=== PATIENT | male | born 1970 | race Caucasian/White ===

== ENCOUNTER 2021-07-26 14:02 | Inpatient (IN) | payer OTHER ==
[~2021-07-26] VITALS: Ht 172.7 cm; Wt 108.9 kg
[2021-07-26 16:36] LABS: HEMATOCRIT 42.8 % (42.0-52.0); HEMOGLOBIN 14.2 gm/dL (14.0-18.0); MCH 29.4 pg (26.0-34.0); MCHC 33.2 g/dL (28.0-37.0); MCV 88.6 fL (80.0-100.0); RBC 4.83 mil/uL (4.50-6.00); RDW 14.4 % (10.5-14.5); WBC 9.7 thou/uL (4.0-11.0)
[2021-07-26 16:46] LABS: CALCIUM 8.7 mg/dL (8.5-10.1); CREATININE 1.3 mg/dL (0.7-1.3)
[2021-07-26 16:50] LABS: INR 0.94; PROTIME 10.3 Seconds (10.5-12.1)
[2021-07-26 16:52] LABS: ALBUMIN 3.4 g/dL (3.4-5.0); TOTAL BILIRUBIN 0.5 mg/dL (0.2-1.0); TOTAL PROTEIN 6.9 g/dL (6.4-8.2)
[2021-07-26 16:55] LABS: CHOLESTEROL 239 mg/dL (<200); HDL CHOLESTEROL 40 mg/dL (>40); LDL CHOLESTEROL 183 mg/dL (<100); TRIGLYCERIDE 84 mg/dL (<150); VLDL 17 mg/dL (<40)
[2021-07-26 17:34] LABS: FOLIC ACID 15.6 ng/mL (8.6-58.9)
[2021-07-26 17:45] VITALS: BP 169/108
--- NOTE | 2021-07-26 18:24 | NUR ---
PT TO THE UNIT FROM [facility] VIA AMBULANCE. ORIENTED TO ROOM AND BEDSPACE. ASSESSMENT CHARTED - MEDS PER NOV - SEEN BY DR JOHNSON AND SHERLEY THIS AFTERNOON. SHADIA DIET AND FLUIDS. NO CO'S OF PAIN OR NAUSEA. HAS BEEN RESTING IN BED WITH NO CO'S OF SOB. PT RESTING COMFORTABLY AT THE PRESENT TIME.
[2021-07-26 19:39] VITALS: BP 158/109
[2021-07-26 23:45] VITALS: BP 147/95
[2021-07-27 04:25] VITALS: BP 130/95
[2021-07-27 05:27] LABS: CALCIUM 8.6 mg/dL (8.5-10.1); CREATININE 1.2 mg/dL (0.7-1.3); POTASSIUM 4.2 mmol/L (3.5-5.1)
--- NOTE | 2021-07-27 07:07 | EKG ---
[place] [address] [address] [place] [address] ELECTROCARDIOGRAM REPORT Name: ZAK PÉREZ Room #: 214-P ADM IN M.R.#: [id number] Admission: 07/26/21 Attend Phys: Liban Escalante Discharge: Date of : 70 Report #: [id number] [facility] Test Date: 2021-07-26 Test Time: 18:19:01 Pat Name: ZAK PÉREZ Department: Room: 214 P Gender: M Cruise Consultant: FSCHWALBE : 1970 Requested By: Sy Colon Order Number: [id number] MD: Champ Hardin Measurements Intervals [place] Rate: 93 P: 56 MS: 126 QRS: -3 QRSD: 101 T: 247 QT: 384 QTc: 478 Interpretive Statements Sinus rhythm Left atrial enlargement Nonspecific T abnormalities, lateral leads Borderline prolonged QT interval No previous ECG available for comparison Electronically Signed On 07-27-2021 7:07:44 CDT by Champ Hardin [email or web address] <ELECTRONICALLY SIGNED> By: Champ Hardin MD, [facility] 07/27/21 07 181 1819 Champ Hardin MD, FACC /EPI
--- NOTE | 2021-07-27 07:08 | EKG ---
[place] [address] [address] [facility] [address] [place] [address] ELECTROCARDIOGRAM REPORT Name: ZAK PÉREZ Room #: 214-P ADM IN M.R.#: [id number] Admission: 07/26/21 Attend Phys: Liban Escalante Discharge: Date of : 70 Report #: [id number] [facility] Test Date: 2021-07-27 Test Time: 05:30:09 Pat Name: ZAK PÉREZ Department: Room: 214 P Gender: M Meeting Specialist: NORMA ELDER : 1970 Requested By: Sy Colon Order Number: [id number] MD: Champ Hardin Measurements Intervals [place] Rate: 75 P: 46 HI: 131 QRS: -1 QRSD: 96 T: 225 QT: 435 QTc: 486 Interpretive Statements Sinus rhythm Probable left atrial enlargement Nonspecific T abnormalities, diffuse leads Borderline prolonged QT interval Compared to ECG 07/26/2021 18:19:01 No significant changes Electronically Signed On 07-27-2021 7:08:33 CDT by Champ Hardin [email or web address] <ELECTRONICALLY SIGNED> By: Champ Hardin MD, [facility] 07/27/21707 9 9 Champ Hardin MD, FACC /EPI
[2021-07-27 07:49] VITALS: BP 135/85
--- NOTE | 2021-07-27 08:01 | NUR ---
AT APPROXIMATELY 0530 PATIENT HAD COMPLAINTS OF MIDSTERNAL PRESSURE. PATIENT RATED IT THREE/FOUR. STAT EKG OBTAINED WITH NITRO TIMES ONE GIVEN. PATIENT STATED THE PRESSURE FELL TO ONE AND THEN PROMPTLY FELL ASLEEP. PROVIDER NOTIFIED REGARDING INCIDENT.
[2021-07-27] MEDS ORDERED: LIPITOR40 MG PO (08:56)
[2021-07-27] MEDS ORDERED: OLMESARTAN-HCT1 EACH PO (08:56)
[2021-07-27 11:25] VITALS: BP 136/87
--- NOTE | 2021-07-27 13:52 | NUR ---
CM role introduced to pt at bedside. He is A&ox4 and indicates he is indep with gait and adl's,drives and was working prior to admission. He does not have access to health ins but considering sign up for the MIKE. He has family that works for Dr. Justo Palomo in [place] and he is able to be seen in that office for primary care. He is familiar with [employer] and [employer] [facility] for meds. No cm interventions indicated. He is getting a heart echo today and then hopes to be able to go home. Will follow along should dc needs arise.
--- NOTE | 2021-07-27 15:26 | 2DMMODE ---
[facility] [address] [address] 2 D/M-MODE ECHOCARDIOGRAM Name: ZAK PÉREZ Room #: 214-P ADM IN M.R.#: [id number] Admission: 07/26/21 Attend Phys: Liban Escalante Discharge: Date of : 70 Report #: [id number] THIS REPORT FOR: cc: FAM - Family physician unknown FAM - Family physician unknown Sy Colon MD [facility] ~ APPROVED REPORT Study performed: 07/27/2021 14:22:59 EXAM: Comprehensive 2D, Doppler, and color-flow Echocardiogram Patient Location: Bedside Room #: 214 Status: routine BSA: 2.19 HR: 91 bpm BP: 136/87 mmHg Rhythm: NSR Other Information Study Quality: Good Indications Dyspnea Hypertension/HDD 2D Dimensions RVDd: 33.13 mm IVSd: 14.77 (7-11mm) LVOT Diam: 22.79 (18-24mm) LVDd: 54.78 mm PWd: 14.83 (7-11mm) Ascending Ao: 36.51 (22-36mm) LVDs: 47.00 (25-40mm) Left Atrium: 47.92 (27-40mm) Aortic Root: 37.17 mm IVC: 24.00 mm Volumes Left Atrial Volume (Systole) Single Plane 4CH: 100.31 mL Single Plane 2CH: 66.83 mL LA ESV Index: 41.00 mL/m2 Aortic Valve AoV Peak Abiodun.: 1.04 m/s AO Peak Gr.: 4.31 mmHg LVOT Max P.91 mmHg LVOT Max V: 0.99 m/s [facility] [address] [place] [address] 2 D/M-MODE ECHOCARDIOGRAM Name: ELISAZAK Room #: 214-P [facility] [place] ..#: [id number] Admission: 07/26/21 Attend Phys: Liban [place] Nov Discharge: Date of : 70 Report #: [id number] INGRID Vmax: 3.88 cm2 Mitral Valve E/A Ratio: 1.7 MV Decel. Time: 164.88 ms MV E Max Abiodun.: 1.08 m/s MV A Abiodun.: 0.63 m/s MV PHT: 47.82 ms IVRT: 78.43 ms Pulmonary Valve PV Peak Abiodun.: 0.79 m/s PV Peak Gr.: 2.51 mmHg Pulmonary Vein P Vein S: 0.57 m/s P Vein A: 0.28 m/s P Vein D: 0.93 m/s P Vein A Dur.: 106.1 msec P Vein S/D Ratio: 0.61 Left Ventricle The left ventricle is normal size. There is normal LV segmental wall motion. Mild concentric left ventricular hypertrophy. Left ventricular systolic function is at the lower limits of normal LVEF 50%. Moderate diastolic dysfunction Right Ventricle The right ventricle is normal size. The right ventricular systolic function is normal. Atria The left atrium size is normal. The right atrium size is normal. Aortic Valve The aortic valve is normal in structure. No aortic regurgitation is present. There is no aortic valvular stenosis. Mitral Valve The mitral valve is normal in structure. Mild to moderate mitral regurgitation. No evidence of mitral valve stenosis. Tricuspid Valve The tricuspid valve is normal in structure. There is no tricuspid valve regurgitation noted. Pulmonic Valve The pulmonary valve is normal in structure. There is no pulmonic [facility] [place] [address] 2 D/M-MODE ECHOCARDIOGRAM Name: ZAK PÉREZ Room #: 214-P [facility] [place] M.R.#: [id number] Admission: 07/26/21 Attend Phys: Liban Ram Discharge: Date of : 70 Report #: [id number] valvular regurgitation. Great Vessels The aortic root is normal in size. IVC is dilated and collapses <50% with inspiration. Pericardium There is no pericardial effusion. <Conclusion> Left ventricular systolic function is at the lower limits of normal LVEF 50%. Moderate diastolic dysfunction The aortic valve is normal in structure. No aortic regurgitation or stenosis The mitral valve is normal in structure. Mild to moderate mitral regurgitation Pulmonay artery pressure could not be reliably ascertained. There is no pericardial effusion. <ELECTRONICALLY SIGNED> By: Sy Colon MD, FACC 07/27/21 1525 24 24 Sy Colon MD, FAC /INF
[2021-07-27 15:42] VITALS: BP 155/91
[2021-07-27 16:51] VITALS: BP 155/91
--- NOTE | 2021-07-27 17:58 | NUR ---
PATIENT DISCHARGED. PATIENT DISCHARGE TEACHING AND EDUCATION DONE, NO QUESTIONS OR CONCERNS FROM PATIENT OR SPOUSE AT BEDSIDE. IV AND TELE REMOVED. TAKEN BY WHEELCHAIR TO CAR BY STAFF
[2021-07-27 23:06] LABS: GLYCOHEMOGLOBIN (HGB A1C) 6.2 % (4.8-5.6)
--- NOTE | 2021-07-30 17:01 | HC ---
[facility] [place] [address] CONSULTATION Name: ZAK PÉREZ Room #: 214-[facility] IN M.R.#: [id number] Admission: 07/26/21 Attend Phys: Liban Escalante Discharge: 07/27/21 Date of : 70 Report #: [id number] THIS REPORT FOR: cc: FAM - Family physician unknown FAM - Family physician unknown Sy Colon MD [facility] ~ DATE OF SERVICE: 07/26/2021 REASON FOR CONSULTATION: Troponin elevation. HISTORY OF PRESENT ILLNESS: The patient is a 51-year-old gentleman with a fairly limited past medical history. Over the past 2-3 weeks, he has noticed more than usual exertional breathlessness. This was not associated with chest pain or pressure. The breathlessness seemed to be worse while supine and better when sitting up. He denies fevers, chills, cough or systemic symptoms. Because of this symptom, he presented to the Emergency Department at [facility] where his blood pressure was 221/133 with a saturation of 92% and normal heart rate. His EKG demonstrated a sinus rhythm with minor nonspecific T-wave changes. Highly sensitive troponin was elevated at 512. He was transported to [facility] under the concern over the possibility of an acute ischemic event. He denies prior cardiac history. No paroxysmal nocturnal dyspnea, or lower extremity edema. COVID testing prior to transfer was normal. He has not been vaccinated. ALLERGIES: HE IS ALLERGIC TO PENICILLIN. MEDICATIONS: He takes no medicines on a regular basis. PAST MEDICAL HISTORY: Medical records have been reviewed and include a history of hypertension, dyslipidemia, elevated blood sugar without the diagnosis of diabetes. SOCIAL HISTORY: He is a half pack to 1 pack a day smoker for the past 30 years, single, works in construction. FAMILY HISTORY: Unremarkable for premature coronary disease. REVIEW OF SYSTEMS: All systems negative except as that noted above. PHYSICAL EXAMINATION: GENERAL: A pleasant gentleman who is alert and in no distress. He is mildly dyspneic. VITAL SIGNS: Blood pressure is 190/130, heart rate of 70 and regular, respirations unlabored at 18. HEENT: There are neither xanthelasma, subcutaneous xanthomata, oral mucosal or digital cyanosis or kyphoscoliosis present. [facility] [address] [place] [address] CONSULTATION Name: ZAK PÉREZ Room #: 214-P [facility] IN .R.#: [id number] Admission: 07/26/21 Attend Phys: Liban Escalante Discharge: 07/27/21 Date of : 70 Report #: [id number] CHEST: Reveals diminished breath sounds at both bases with prolonged expiratory phase. CARDIAC: Regular rate and rhythm with normal S1, S2. Jugular venous pressure is moderately elevated. ABDOMEN: Soft and nontender. EXTREMITIES: Without cyanosis, clubbing or edema. Radial pulses are 2+. NEUROLOGIC: He is alert with a nonfocal exam. DIAGNOSTIC DATA: EKG as detailed above. Chest x-ray demonstrates minimal scarring at both bases. LABORATORY DATA: Sodium 141, potassium 4.0, creatinine 1.3, glucose 256. High sensitivity troponin 441, glucose 239, LDL 183, triglycerides 84. White count 9.7, hemoglobin 14, hematocrit 42, platelet count 222. TSH 1.2. ASSESSMENT: 1. Hypertensive urgency. 2. Acute diastolic heart failure. 3. Small troponin elevation, likely related to #1 above. 4. Probable chronic obstructive pulmonary disease and tobacco dependency. 5. Probable sleep apnea, by history. RECOMMENDATIONS: 1. Aggressive blood pressure control. Addition of olmesartan and Bystolic; gentle diuresis. 2. Echocardiogram with Doppler. 3. Smoking cessation. I suspect his presentation is consistent with diastolic heart failure, likely as a consequence of hypertensive urgency. I have discussed these issues with the patient. Further thoughts and plans will be forthcoming based on full completion of the database and based on his clinical course. Thank you for asking me to participate in his care. <ELECTRONICALLY SIGNED> By: Sy Colon MD, FACC 07/30/21 1701 1659 2331 Sy Colon MD, FACC /nt
== END 2021-07-27 18:02 | disposition home or self-care (01) | DRG 305 ==
LOC: 2N 14:02
PROVIDERS: Internal Medicine; ADMIT Hospitalist; ATTEND Hospitalist
DX: I16.0 Hypertensive urgency (principal); I50.30 Unspecified diastolic (congestive) heart failure; G47.33 Obstructive sleep apnea (adult) (pediatric); I11.0 Hypertensive heart disease with heart failure; J44.9 Chronic obstructive pulmonary disease, unspecified; E78.00 Pure hypercholesterolemia, unspecified; Z79.899 Other long term (current) drug therapy
CPT/HCPCS: 10081